=== PATIENT | female | born 1960 | race Asian ===

== ENCOUNTER → 2017-04-05 | Outpatient (CLI) | payer OTHER | END | disposition home or self-care (01) | LOC: CFH 06:46 | PROVIDERS: ATTEND Family Medicine | DX: Z12.31 Encounter for screening mammogram for malignant neoplasm of breast (principal) | CPT/HCPCS: G0202 ==

== ENCOUNTER → 2018-08-17 | Outpatient (CLI) | payer OTHER | END | disposition home or self-care (01) | LOC: RAD 11:43 | PROVIDERS: ATTEND Family Medicine | DX: N20.0 Calculus of kidney (principal) | CPT/HCPCS: 74018 ==

== ENCOUNTER → 2019-02-08 | Outpatient (CLI) | payer OTHER | END | disposition home or self-care (01) | LOC: CFH 06:54 | PROVIDERS: ATTEND Internal Medicine Cardiovascular Disease | DX: I34.0 Nonrheumatic mitral (valve) insufficiency (principal); I00 Rheumatic fever without heart involvement; I10 Essential (primary) hypertension; E78.5 Hyperlipidemia, unspecified | CPT/HCPCS: 93306 ==

== ENCOUNTER 2019-04-10 07:05 | Outpatient (CLI) | payer OTHER | END 2019-04-10 23:59 | disposition home or self-care (01) | LOC: CFH 07:05 | PROVIDERS: ATTEND Family Medicine | DX: Z12.31 Encounter for screening mammogram for malignant neoplasm of breast (principal) | CPT/HCPCS: 77067 ==

== ENCOUNTER → 2020-04-17 | Outpatient (CLI) | payer OTHER | END | disposition home or self-care (01) | LOC: CFH 07:08 | PROVIDERS: ATTEND Family Medicine | DX: Z12.31 Encounter for screening mammogram for malignant neoplasm of breast (principal) | CPT/HCPCS: 77067 ==

== ENCOUNTER 2021-04-20 15:08 | Outpatient (CLI) | payer OTHER | END 2021-04-20 23:59 | disposition home or self-care (01) | LOC: CFH 15:08 | PROVIDERS: ATTEND Family Medicine | DX: Z12.31 Encounter for screening mammogram for malignant neoplasm of breast (principal) | CPT/HCPCS: 77063; 77067 ==